=== PATIENT | male | born 1970 | race Caucasian/White ===

== ENCOUNTER 2018-01-04 10:09 | Emergency (ER) | payer BC, MEDICAID ==
[~2018-01-04] VITALS: Ht 188 cm; Wt 80.0 kg
[2018-01-04 10:37] LABS: BASOPHILS % (AUTO) 0.3 % (0-1); EOSINOPHILS # (AUTO) 0.1 X10'3 (0-0.9); EOSINOPHILS % (AUTO) 1.5 % (0-6); HEMATOCRIT 48.9 % (42.0-52.0); HEMOGLOBIN 16.9 g/dl (14.0-17.9); LYMPHOCYTES # (AUTO) 1.2 X10'3 (1.1-4.8); LYMPHOCYTES % (AUTO) 15.1 % (21-51); MEAN CORPUSCULAR HEMOGLOBIN 29.6 PG (27.0-31.0); MEAN CORPUSCULAR HGB CONC 34.6 % (33.0-36.5); MEAN CORPUSCULAR VOLUME 85.5 FL (78-98); MEAN PLATELET VOLUME 8.1 FL (7.4-10.4); MONOCYTES # (AUTO) 0.4 X10'3 (0-0.9); MONOCYTES % (AUTO) 4.7 % (2-12); NEUTROPHILS # (AUTO) 6.5 X10'3 (1.8-7.7); NEUTROPHILS % (AUTO) 78.4 % (42-75); PLATELET COUNT 238 X10'3 (140-440); RED BLOOD COUNT 5.72 X10'6 (4.70-6.10); RED CELL DISTRIBUTION WIDTH 13.4 % (11.5-14.5); WHITE BLOOD COUNT 8.2 X10'3 (4.5-11.0)
[2018-01-04 11:01] LABS: ALANINE AMINOTRANSFERASE 29 U/L (12-78); ALBUMIN 3.8 G/DL (3.4-5.0); ALBUMIN/GLOBULIN RATIO 0.9 (1.1-1.5); ALKALINE PHOSPHATASE 150 IU/L (46-116); ANION GAP 9 (8-16); ASPARTATE AMINO TRANSFERASE 11 U/L (10-37); BILIRUBIN,TOTAL 0.6 MG/DL (0.1-1.0); BLOOD UREA NITROGEN 14 MG/DL (7-18); BUN/CREATININE RATIO 15.1 (5.4-32.0); CALCIUM 9.1 MG/DL (8.5-10.1); CHLORIDE 99 MMOL/L (99-107); CREATININE 0.93 MG/DL (0.60-1.10); GLUCOSE 446 MG/DL (70-104); MAGNESIUM 1.9 MG/DL (1.5-2.4); POTASSIUM 4.4 MMOL/L (3.5-5.1); SODIUM 133 MMOL/L (135-145); TOTAL CARBON DIOXIDE 24.6 MMOL/L (24-32); TOTAL PROTEIN 8.2 G/DL (6.4-8.2); eGFR 87 ML/MIN
[2018-01-04 11:31] LABS: D-DIMER 0.24 MG/L FEU (0-0.50)
[2018-01-04] MEDS ORDERED: ondansetron/PF 4mg/2ml inj IV ONE (11:45)
[2018-01-04] MEDS ORDERED: normal saline 1000ML IV soln IVB ONE (11:45)
[2018-01-04] MEDS ORDERED: ketorolac trometh. 30mg/ml inj. IV ONE (11:45)
[2018-01-04] MEDS ORDERED: insulin regular, human 10 units/0.1 ml syringe IV ONE (12:40)
[2018-01-04 13:32] VITALS: BP 129/86
== END 2018-01-04 14:17 | disposition home or self-care (01) ==
LOC: ER 10:10
DX: B34.9 Viral infection, unspecified (principal); R07.81 Pleurodynia; E10.65 Type 1 diabetes mellitus with hyperglycemia
CPT/HCPCS: 36415; 71045; 80053; 82948; 83735; 83880; 84484; 85025; 85379; 93005; 96374; 96375; 99285; J1815; J1885; J2405; J7030

== ENCOUNTER 2018-05-24 17:27 | Emergency (ER) | payer BC, OTHER ==
[~2018-05-24] VITALS: Ht 182.9 cm; Wt 99.0 kg
[2018-05-24 17:35] VITALS: BP 126/86
== END 2018-05-24 18:20 | disposition home or self-care (01) ==
LOC: ER 17:28
DX: M25.532 Pain in left wrist (principal); E11.9 Type 2 diabetes mellitus without complications; X50.1XXA Overexertion from prolonged static or awkward postures, initial encounter; Y93.89 Activity, other specified; Y92.89 Other specified places as the place of occurrence of the external cause; Y99.9 Unspecified external cause status
CPT/HCPCS: 29125; 73110; 99284

== ENCOUNTER 2018-08-02 21:16 | Emergency (ER) | payer MEDICAID ==
[~2018-08-02] VITALS: Ht 188 cm; Wt 98.3 kg
[2018-08-02 21:24] VITALS: BP 124/88
[2018-08-02] MEDS ORDERED: IBUP-1985 PO (22:02)
== END 2018-08-02 22:15 | disposition home or self-care (01) ==
LOC: ER 21:16
DX: M23.91 Unspecified internal derangement of right knee (principal); E11.9 Type 2 diabetes mellitus without complications; Z79.899 Other long term (current) drug therapy
CPT/HCPCS: 29505; 73564; 99284

== ENCOUNTER 2019-05-29 19:43 | Emergency (ER) | payer MEDICAID ==
[~2019-05-29] VITALS: Ht 188 cm; Wt 100.0 kg
[~2019-05-29 19:43] MED LIST: IBUP-1985 PO
[2019-05-29] MEDS ORDERED: diphenhydrAMINE 25mg capsule PO ONE (22:10)
[2019-05-29] MEDS ORDERED: proCHLORperazine 10 MG/2 ml inj IM ONE (22:10)
[2019-05-29] MEDS ORDERED: traMADol 50MG tablet PO ONE (22:10)
[2019-05-29] MEDS ORDERED: ketorolac trometh. 30mg/ml inj. IM ONE (22:10)
[2019-05-29] MEDS ORDERED: aspirin 325mg tablet PO ONE (22:10)
[2019-05-29 23:04] VITALS: BP 132/90
== END 2019-05-29 23:00 | disposition home or self-care (01) ==
LOC: ER 19:45
DX: G43.909 Migraine, unspecified, not intractable, without status migrainosus (principal); E11.9 Type 2 diabetes mellitus without complications; Z98.890 Other specified postprocedural states; Z79.899 Other long term (current) drug therapy
CPT/HCPCS: 96372; 99284; J0780; J1885; Q0163

== ENCOUNTER 2021-05-14 12:43 | Emergency (ER) | payer MEDICAID, OTHER ==
[~2021-05-14] VITALS: Ht 188 cm; Wt 93.2 kg
[2021-05-14 12:48] VITALS: BP 131/82
== END 2021-05-14 14:16 | disposition home or self-care (01) ==
LOC: ER 12:43
DX: M54.2 Cervicalgia (principal); R11.2 Nausea with vomiting, unspecified; E11.9 Type 2 diabetes mellitus without complications; R53.83 Other fatigue; Z98.890 Other specified postprocedural states; Z79.899 Other long term (current) drug therapy
CPT/HCPCS: 70450; 72125; 99285

== ENCOUNTER 2022-08-07 14:36 | Day surgery (SDC) | payer MEDICAID ==
[2022-08-05 08:59] LABS: BASOPHILS % (AUTO) 0.7 % (0-1); EOSINOPHILS # (AUTO) 0.1 X10'3 (0-0.9); EOSINOPHILS % (AUTO) 1.9 % (0-6); HEMATOCRIT 44.2 % (42.0-52.0); HEMOGLOBIN 15.1 g/dl (14.0-17.9); LYMPHOCYTES # (AUTO) 1.7 X10'3 (1.1-4.8); MEAN CORPUSCULAR HEMOGLOBIN 29.4 PG (27.0-31.0); MEAN CORPUSCULAR HGB CONC 34.2 g/dL (33.0-36.5); MEAN PLATELET VOLUME 7.2 FL (7.4-10.4); MONOCYTES # (AUTO) 0.5 X10'3 (0-0.9); MONOCYTES % (AUTO) 6.5 % (2-12); NEUTROPHILS # (AUTO) 4.5 X10'3 (1.8-7.7); NEUTROPHILS % (AUTO) 65.9 % (42-75); PLATELET COUNT 237 X10'3 (140-440); RED BLOOD COUNT 5.14 X10'6 (4.70-6.10); RED CELL DISTRIBUTION WIDTH 14.2 % (11.5-14.5); WHITE BLOOD COUNT 6.9 X10'3 (4.5-11.0)
[2022-08-05 09:11] LABS: APTT 27 SECONDS (22-32)
[2022-08-05 09:15] LABS: ALBUMIN 3.6 G/DL (3.4-5.0); ANION GAP 7 (8-16); BLOOD UREA NITROGEN 18 MG/DL (7-18); BUN/CREATININE RATIO 17.5 (5.4-32.0); CHLORIDE 104 MMOL/L (99-107); CHOL/HDL RATIO 2.4 (0.00-4.99); CHOLESTEROL 92 MG/DL (0-200); CREATININE 1.03 MG/DL (0.60-1.10); GLUCOSE 173 MG/DL (70-104); HDL CHOLESTEROL 39 MG/DL (35-60); LDL CHOLESTEROL 45 MG/DL (50-100); POTASSIUM 4.3 MMOL/L (3.5-5.1); SODIUM 139 MMOL/L (135-145); TOTAL CARBON DIOXIDE 28.3 MMOL/L (24-32); TRIGLYCERIDES 50 MG/DL (20-135); eGFR 76 ML/MIN
[2022-08-07] VITALS (9 sets, daily range): BP systolic 109–140; BP diastolic 67–83
[~2022-08-07] VITALS: Ht 188 cm; Wt 98.9 kg
[2022-08-07] MEDS ORDERED: diphenhydrAMINE 25mg capsule PO PRN (14:55)
[2022-08-07] MEDS ORDERED: LORazepam 0.5 MG tablet PO PRN (14:55)
[2022-08-07] MEDS ORDERED: normal saline 1,000 ML IV SCH (14:55)
[2022-08-07] MEDS ORDERED: ARIP2TAB20 (15:32)
[2022-08-07] MEDS ORDERED: ATOR20TA66 PO (15:32)
[2022-08-07] MEDS ORDERED: METF-900 PO (15:32)
[2022-08-07] MEDS ORDERED: PIOG30TA71 PO (15:32)
[2022-08-07] MEDS ORDERED: BUPR300T86 (15:32)
[2022-08-07] MEDS ORDERED: METO-384 PO (15:32)
[2022-08-07] MEDS ORDERED: DULA3PEN (15:32)
[2022-08-07] MEDS ORDERED: SEMA0.25 SQ (15:32)
[2022-08-07] MEDS ORDERED: CHOL20004 PO (15:33)
[2022-08-07] MEDS ORDERED: ZINC100T2 PO (15:35)
[2022-08-07] MEDS ORDERED: PYRI100L2 (15:40)
[2022-08-07] MEDS ORDERED: heparin 1,000unit/ml 10ml vial 10 ML ONE (15:55)
[2022-08-07] MEDS ORDERED: nitroGLYCERIN-Tridil 50MG/D5W 250 ML IV ONE (15:55)
[2022-08-07] MEDS ORDERED: iohexol 350MG/ML 100ml bottle IV ONE (15:55)
[2022-08-07] MEDS ORDERED: LIDOcaine 1% (10mg/ml) 2ml vial ONE (15:55)
[2022-08-07] MEDS ORDERED: midazolam 1 mg/ML 2ml injection ONE (15:55)
[2022-08-07] MEDS ORDERED: verapamil 2.5 mg/ml inj IV ONE (15:55)
[2022-08-07] MEDS ORDERED: fentaNYL/PF 50MCG/1 ML 2ML syringe ONE (15:55)
== END 2022-08-07 20:35 | disposition home or self-care (01) ==
LOC: SSTAY O 14:36
PROVIDERS: ATTEND Student in an Organized Health Care Education/Training Program
DX: R07.9 Chest pain, unspecified (principal); I10 Essential (primary) hypertension; E78.5 Hyperlipidemia, unspecified; Z79.899 Other long term (current) drug therapy; Z98.890 Other specified postprocedural states
CPT/HCPCS: 36415; 80048; 80061; 82948; 85025; 85610; 85730; 93005; 93458; A6258; C1769; C1894; J1644; J2250; J3010; J3490; J7030; Q0163; Q9967; 99152; A6402

== ENCOUNTER 2024-05-01 18:28 | Emergency (ER) | payer MEDICAID ==
[~2024-05-01] VITALS: Ht 188 cm; Wt 96.4 kg
[~2024-05-01 18:28] MED LIST changes: +ARIP2TAB20; +ATOR20TA66 PO; +BUPR-564; +CHOL20004 PO; +DULA3PEN; -IBUP-1985 PO; +METF-900 PO; +METO-384 PO; +PIOG30TA71 PO; +PYRI100L2; +SEMA0.25 SQ; +ZINC100T2 PO
[2024-05-01 18:47] VITALS: BP 123/78; PULSE 95; TEMP 98.3; O2SAT 97
[2024-05-01 20:03] VITALS: RESP 18
== END 2024-05-01 20:04 | disposition home or self-care (01) ==
LOC: ER 18:29
DX: S40.012A Contusion of left shoulder, initial encounter (principal); S20.212A Contusion of left front wall of thorax, initial encounter; E11.9 Type 2 diabetes mellitus without complications; Z79.899 Other long term (current) drug therapy; W01.0XXA Fall on same level from slipping, tripping and stumbling without subsequent striking against object, initial encounter; Y93.89 Activity, other specified; Y92.89 Other specified places as the place of occurrence of the external cause; Y99.8 Other external cause status
CPT/HCPCS: 73030; 99283; A4565

== ENCOUNTER 2025-01-17 08:33 | Emergency (ER) | payer BC, MEDICAID ==
[~2025-01-17] VITALS: Ht 188 cm; Wt 95.1 kg
[~2025-01-17 08:33] MED LIST changes: -ARIP2TAB20; +ARIP2TAB67; +BUPR-480; -BUPR-564
[2025-01-17 08:35] VITALS: TEMP 97.6
[2025-01-17] MEDS ORDERED: ACET1TAB96 PO (10:33)
[2025-01-17] MEDS ORDERED: PROM25TA14 PO (10:33)
[2025-01-17] MEDS ORDERED: AZIT250T PO (10:33)
[2025-01-17] MEDS ORDERED: ALBU8HFA INH (10:33)
[2025-01-17] MEDS: dexamethasone sod phosphate 10mg/ml inj IM STA (10:42)
[2025-01-17 10:44] VITALS: BP 126/79; PULSE 81; RESP 16; O2SAT 97
== END 2025-01-17 11:10 | disposition home or self-care (01) ==
LOC: ER 08:33
DX: J20.9 Acute bronchitis, unspecified (principal); E11.9 Type 2 diabetes mellitus without complications
CPT/HCPCS: 71045; 96372; 99283; J1100

== ENCOUNTER 2025-08-15 11:03 | Emergency (ER) | payer OTHER, BC, MEDICAID ==
[~2025-08-15] VITALS: Ht 188 cm; Wt 97.8 kg
[~2025-08-15 11:03] MED LIST changes: +AZIT250T PO; -ZINC100T2 PO; +ZINC100T9 PO
[2025-08-15 11:05] VITALS: BP 148/77; PULSE 112; RESP 16; TEMP 99.5; O2SAT 100
[2025-08-15 11:44] LABS: INFLUENZA TYPE A ANTIGEN RAPID NEGATIVE (Negative); INFLUENZA TYPE B ANTIGEN RAPID NEGATIVE (Negative)
--- NOTE | 2025-08-15 12:03 | Physician Documentation ---
History of Present Illness ~ Chief Complaint: Flu Symptoms Stated Complaint: FLU SYMPTOMS Time Seen by MD: 11:55 Primary Medical Doctor: [facility] HPI 55-year-old male presents to the ED. Complains of cough body aches fever nausea vomiting. States he went to his provider today and because he has tachycardia they sent him to the ED. Patient is otherwise healthy is a nonsmoker Medication Reconciliation Allergies: Coded Allergies: No Known Allergies (Unverified , 01/17/25) Scheduled Aripiprazole (Aripiprazole), 1 DAILY, (Reported) Atorvastatin Calcium (Atorvastatin Calcium), 1 TAB PO DAILY, (Reported) Azithromycin (Zithromax), 1 TAB PO UD Bupropion HCl (Bupropion Xl), 1 DAILY, (Reported) Cholecalciferol (Vitamin D), 1 TAB PO DAILY, (Reported) Metformin Hcl* (Metformin ER*), 2 TAB PO BID, (Reported) Metoprolol Succinate (Metoprolol Succinate), 1 TAB PO DAILY, (Reported) Pioglitazone Hcl (Pioglitazone Hcl), 1 TAB PO DAILY, (Reported) Zinc Gluconate (Zinc Gluconate), 0.5 TAB PO DAILY, (Reported) Miscellaneous Medications Dulaglutide (Trulicity), 55, (Reported) Pyridoxine HCl (Vitamin B6) (Vitamin B6), (Reported) Semaglutide (Ozempic), SQ, (Reported) Past Medical History Past Medical History: Diabetes Past Surgical History: other Alcohol Use: None Drug Use: none Lives with: Spouse Review of Systems All Other Systems at this time: Reviewed and Negative ROS As stated above in the HPI, otherwise all systems are reviewed and negative. Physical Exam Vital Signs: Temperature: 99.5, Source: Oral, Heart Rate: 112, Respiratory Rate: 16, BP: 148/77, Pulse Oximetry: 100, Weight: 97.800 Oxygen Flow Rate: 0 Physical Exam General: Alert, no apparent distress. Chest: No accessory muscle use. Cardiovascular: mild tachycardia and rhythm, no murmurs. Gastrointestinal: Soft, nontender, nondistended. Bowels sounds present. Extremities: Normal range of motion, no deformity. Neurologic: Oriented x4. Psychiatric: Normal mood and affect. Skin: Normal color, warm and dry. No edema, no ecchymosis. Progress Results/Orders Results/Orders Vital Signs 08/15/25 11:05 Temp 99.5 Pulse 112 Resp 16 B/P (MAP) 148/77 Pulse Ox 100 O2 Flow Rate 0 Laboratory Tests Test 08/15/25 11:10 Influenza Type A Antigen Negative Influenza Type B Antigen Negative SARS-CoV-2 Antigen (Rapid) Positive *A Medical Decision Making Additional information obtaine: old records Findings I advised patient to to stay home rest in watching Netflix as he recovers from COVID. Not think he would benefit from antivirals at this time his prescribed a from primary care already sent Zofran for his nausea. Differential Dx:Considerations: Include: CVA, Dehydration, Drug toxicity, Electrolyte imbalance, Influenza, Meningitis, Mycardial infarction, Pneumonia, Pneumonitis, Pulmonary embolus, Pyelonephritis, Respiratory failure, Sepsis, UTI, Viral Syndrome, Other Departure Disposition: 01 HOME / SELF CARE / HOMELESS Impression: Primary Impression: COVID-19 Condition: Stable Discharge Instructions: Viral Illness Additional Instructions: rest and relax Referrals: NO PRIMARY CARE PROVIDER (PCP) Education Educated: Patient Educated regarding: diagnosis Signature Scribe Signature: f Attestation: Scribed for Kaushik Spicer [employer] Le[employer] Manager by Kaushik Bentley NP . 08/15/25 12:03 KAUSHIK SPICER NP Aug 15, 2025 12:03
== END 2025-08-15 12:32 | disposition home or self-care (01) ==
LOC: ER 11:04
DX: U07.1 COVID-19 (principal); E11.9 Type 2 diabetes mellitus without complications; Z79.899 Other long term (current) drug therapy
CPT/HCPCS: 36415; 87804; 87811; 99283